=== PATIENT | male | born 1985 | race Caucasian/White ===

== ENCOUNTER 2022-02-16 08:16 | Emergency (ER) | payer OTHER ==
[~2022-02-16] VITALS: Ht 175.3 cm; Wt 88.6 kg
[2022-02-16 09:58] VITALS: BP 161/99
== END 2022-02-16 10:07 | disposition home or self-care (01) ==
LOC: M ED 08:16
DX: S92.901A Unspecified fracture of right foot, initial encounter for closed fracture (principal); M79.621 Pain in right upper arm; X50.1XXA Overexertion from prolonged static or awkward postures, initial encounter; Y99.1 Military activity

== ENCOUNTER 2022-06-17 07:45 | Emergency (ER) | payer OTHER ==
[~2022-06-17] VITALS: Ht 175.3 cm; Wt 89.5 kg
[2022-06-17] MEDS ORDERED: ACET-683 PO (08:05)
[2022-06-17] MEDS ORDERED: ATOR40TA75 PO (08:05)
[2022-06-17] MEDS ORDERED: CYCL-707 PO (10:44)
[2022-06-17] MEDS ORDERED: IBUP-1022 PO (10:44)
[2022-06-17 11:25] VITALS: BP 152/102
== END 2022-06-17 11:34 | disposition home or self-care (01) ==
LOC: M ED 07:45
DX: S29.011A Strain of muscle and tendon of front wall of thorax, initial encounter (principal); S46.911A Strain of unspecified muscle, fascia and tendon at shoulder and upper arm level, right arm, initial encounter; X50.3XXA Overexertion from repetitive movements, initial encounter; Y92.099 Unspecified place in other non-institutional residence as the place of occurrence of the external cause; Y93.H1 Activity, digging, shoveling and raking; I10 Essential (primary) hypertension

== ENCOUNTER 2024-06-08 08:08 | Emergency (ER) | payer OTHER ==
[~2024-06-08] VITALS: Ht 175.3 cm; Wt 99.3 kg
[~2024-06-08 08:08] MED LIST: ACET-683 PO; ATOR40TA75 PO; CYCL-707 PO; IBUP-1022 PO
[2024-06-08 08:29] VITALS: TEMP 98.8; O2SAT 98
[2024-06-08] MEDS: methocarbamoL 500 MG TAB PO ONE (12:15)
[2024-06-08] MEDS: NAPROXEN 250 MG TAB PO ONE (12:16)
[2024-06-08 12:56] VITALS: BP 156/102
[2024-06-08] MEDS ORDERED: METH-1164 PO (13:09)
== END 2024-06-08 13:16 | disposition home or self-care (01) ==
LOC: M ED 08:08
DX: M62.830 Muscle spasm of back (principal); I10 Essential (primary) hypertension